=== PATIENT | female | born 1970 | race Caucasian/White ===

== ENCOUNTER 2016-07-18 06:14 | Emergency (ER) | payer OTHER ==
[~2016-07-18] VITALS: Ht 167.6 cm; Wt 81.6 kg
[2016-07-18 06:59] LABS: ABSOLUTE BASOPHIL COUNT 0 /CUMM (0.0-0.2); ABSOLUTE EOSINOPHIL COUNT 0 /CUMM (0.0-0.7); ABSOLUTE GRANULOCYTE CT 13.8 /CUMM (1.4-6.5); ABSOLUTE LYMPH COUNT 1.3 /CUMM (1.2-3.4); ABSOLUTE MONOCYTE COUNT 0.3 /CUMM (0.10-0.60); BASOPHIL % 0.2 % (0.0-2.0); EOSINOPHIL % 0 % (0-5); GRANULOCYTE % 89.2 % (42.2-75.2); HEMATOCRIT 42.5 % (37-47); MEAN CORPUSCULAR HGB 29.5 PG (27.0-31.0); MEAN CORPUSCULAR HGB CONC 32.8 G/DL (33.0-37.0); MEAN PLATELET VOLUME 7.8 FL (7.4-10.4); PLATELET COUNT 291 /CUMM (130-400); RBC DISTRIBUTION WIDTH 13.4 % (11.5-14.5); RED BLOOD CELL CT 4.73 /CUMM (4.20-5.40); WHITE BLOOD CELL COUNT 15.5 /CUMM (4.8-10.8)
--- NOTE | 2016-07-18 06:59 | ED GI/GU/ABDOMINAL COMPLAINT ---
History of Present Illness General Chief Complaint: Nausea, Vomiting, Diarrhea Stated Complaint: NAUSEA,VOMITING,DIARRHEA Source: patient, family, old records Exam Limitations: no limitations Vital Signs & Intake/Output Vital Signs & Intake/Output Vital Signs Date Time Temp Pulse Resp B/P Pulse O2 O2 Flow FiO2 Ox Delivery Rate 07/18 0740 99.4 92 19 174/84 100 Room Air 07/18 0630 99.6 86 18 152/88 96 Nasal Cannula Allergies Coded Allergies: NO KNOWN ALLERGIES (02/24/12) Triage Nurses Notes Reviewed? yes LMP (ages 10-50): unknown ? n Is pt currently ? No Onset: Morning Duration: hour(s):, continues in ED, waxing and waning Timing: recent history Quality/Severity: cramping, moderate, vomiting Location: generalized abdomen Radiation: epigastric Activities at Onset: rest Prior Abdominal Problems: similar symptoms Past Sexual History: Unobtainable at this time Modifying Factors: Worsens With: vomiting. Associated Symptoms: abdominal pain, diarrhea, heartburn, loss of appetite, nausea/vomiting HPI: 6 hours prior to admission after eating Turkish food patient complains of nausea vomiting frequent loose watery stool generalized abdominal discomfort described as cramping burning radiating to chest associate with shortness of breath. She denies fever chills headache dysuria rash bleeding . (TISHA CAMACHO,CHARLES) Reconcile Medications Atorvastatin Calcium 40 MG TABLET 1 TAB PO DAILY HIGH CHOLESTROL (Reported) Escitalopram Oxalate 20 MG TABLET 1 TAB PO DAILY MENTAL HEALTH (Reported) Hyoscyamine (Levsin) 0.125 MG TABLET 1-2 TAB PO Q6P PRN ABDOMINAL CRAMPS Ondansetron (Zofran Odt) 4 MG TAB.RAPDIS 1 TAB SL Q6P PRN NAUSEA/VOMITING Varenicline Tartrate (Chantix) 0.5 MG (11)-1 MG (42) TAB.DS.PK 1 TAB PO DAILY SMOKING CESATION (Reported) (JUAN CAMACHO,DAMIAN Philippe) Past History Travel History Traveled to [place] past 21 day No Medical History Any Pertinent Medical History? see below for history Cardiovascular: hypertension Surgical History Surgical History: non-contributory Family History Hx Contributory? No (CHARLES GILES MD) Review of Systems Review of Systems Constitutional: Reports: see HPI, malaise. EENTM: Reports: no symptoms. Respiratory: Reports: no symptoms. Cardiovascular: Reports: no symptoms. GI: Reports: see HPI, abdominal pain, nausea, vomiting. Genitourinary: Reports: no symptoms. Musculoskeletal: Reports: no symptoms. Skin: Reports: no symptoms. Neurological/Psychological: Reports: no symptoms. Hematologic/Endocrine: Reports: no symptoms. Immunologic/Allergic: Reports: no symptoms. All Other Systems: Reviewed and Negative (CHARLES GILES MD) Physical Exam Physical Exam General Appearance: well developed/nourished, alert, awake, anxious, moderate distress, obese Head: atraumatic, normal appearance Eyes: Bilateral: normal appearance, PERRL, EOMI. Ears, Nose, Throat, Mouth: hearing grossly normal, moist mucous membrane Neck: normal inspection, supple, full range of motion, normal alignment Respiratory: normal breath sounds, chest non-tender, no respiratory distress, quiet respiration, lungs clear Cardiovascular: regular rate/rhythm, normal peripheral pulses, norml femoral pulses equa Peripheral Pulses: 4+ carotid (R), 4+ carotid (L) Gastrointestinal: normal bowel sounds, soft, non-tender, no organomegaly Back: normal inspection, normal range of motion Extremities: normal range of motion, no ligament instability Neurologic/Psych: no motor/sensory deficits, awake, alert, oriented x 3, normal gait, normal mood/affect, gas analyst II-XII nml as tested Skin: intact, normal color, warm/dry Core Measures ACS in differential dx? No Severe Sepsis Present: No Septic Shock Present: No (CHARLES GILES MD) Progress Differential Diagnosis: biliary colic, gastritis, peptic ulcer, PUD/GERD Plan of Care: Orders Procedure Date/time Status LIPASE 07/18 0645 Complete COMPREHENSIVE METABOLIC PANEL 07/18 0645 Complete CBC WITHOUT DIFFERENTIAL 07/18 0645 Complete EKG 07/18 0630 Active Laboratory Tests 07/18/16 0650: Anion Gap 15, Estimated GFR > 60, BUN/Creatinine Ratio 15.0, Glucose 133 H, Calcium 10.1, Total Bilirubin 0.8, AST 27, ALT 51, Alkaline Phosphatase 88, Total Protein 8.0, Albumin 4.9, Globulin 3.1, Albumin/Globulin Ratio 1.6, Lipase 38, CBC w Diff MAN DIFF ORDERED, RBC 4.73, MCV 90.0, MCH 29.5, RDW 13.4, MPV 7.8 , Gran % 89.2 H, Lymphocytes % 8.4 L, Monocytes % 2.2, Eosinophils % 0, Basophils % 0.2, Absolute Granulocytes 13.8 H, Segmented Neutrophils 85 H, Absolute Lymphocytes 1.3, Lymphocytes 13 L, Monocytes 2, Absolute Monocytes 0.3 , Absolute Eosinophils 0, Absolute Basophils 0, Platelet Estimate ADEQUATE, Polychromasia 1+, Hypochromic-Microcytic 1+, Ovalocytes FEW, PUBS MCHC 32.8 L, Fld Total RBCs Counted 100 Initial ED EKG: normal axis, normal intervals, normal p-waves, normal QRS complex, normal sinus rhythm, no ST T wave changes Hand-Off Endorsed To: DAMIAN KRISHNA MD Endorsed Time: 656 Pending: labs (TISHA CAMACHO,CHARLES) Comments: Patient signed out to me by Dr. Giles. She has been medicated with Zofran and morphine and is now feeling better. We'll attempt a fluid challenge. We have discussed the possibility of food poisoning versus viral gastroenteritis. The patient states the pain occurred roughly 5 hours after her last meal so I doubt biliary colic. She has had a history of acid reflux but she states this does not feel the same way. Plan symptomatic care. 07/18/2016 9:04:18 AM patient feels better and looks comfortable. She has tolerated clear liquids here in the emergency department and wishes to go home. (JUAN CAMACHO,DAMIAN Philippe) Departure Departure Condition: Stable Clinical Impression Primary Impression: Gastroenteritis due to food toxin Referrals: KRYS REESE MD (PCP/Family) Departure Forms: Customer Survey General Discharge Information (CHARLES GILES MD) Departure Disposition: HOME OR SELF CARE Additional Instructions: Zofran as needed for nausea or vomiting, Levsin as needed for abdominal pain. Clear liquid diet and advance as tolerated. Follow-up with your primary care doctor on Thursday if not improved. Return if any concerns or sudden worsening. Thank you for choosing the [facility] Emergency Department for your care. It was a pleasure to serve you today. Damian Krishna M.D. [facility] Prescriptions: Current Visit Scripts Ondansetron (Zofran Odt) 1 TAB SL Q6P PRN NAUSEA/VOMITING #10 TAB Hyoscyamine (Levsin) 1-2 TAB PO Q6P PRN ABDOMINAL CRAMPS #20 TAB (JUAN CAMACHO,DAMIAN Philippe)
[2016-07-18] MEDS ORDERED: ATORVASTATIN CA40 M1 PO (07:20)
[2016-07-18] MEDS ORDERED: ESCITALOPRAM OX20 MG PO (07:20)
[2016-07-18] MEDS ORDERED: CHANTIX1 EACH PO (07:21)
[2016-07-18 07:40] VITALS: BP 174/84
[2016-07-18] MEDS ORDERED: ZOFRAN ODT4 M1 SL (08:18)
[2016-07-18] MEDS ORDERED: LEVSIN0.125 M1 PO (08:18)
== END 2016-07-18 09:11 ==
LOC: ERH 06:14
PROVIDERS: Emergency Medicine
DX: A05.9 Bacterial foodborne intoxication, unspecified (principal)
CPT/HCPCS: 93005; 93010; 96361; 96374; 96375; J2405; J2765